=== PATIENT | female | born 1990 | race Caucasian/White ===

== ENCOUNTER 2016-03-19 16:04 | Inpatient (IN) | payer BC ==
[~2016-03-19] VITALS: Ht 167.6 cm; Wt 101.4 kg
[2016-03-19] VITALS (26 sets, daily range): BP systolic 90–144; BP diastolic 50–82; PULSE 84–115; TEMP 98.1–98.5
[2016-03-19] MEDS ORDERED: PRENATAL1 TA7 PO (16:27)
[2016-03-19 18:50] LABS: BASO % 0.1 % (0.0-2.0); EOS # 0.1 (0.0-0.7); EOS % 0.4 % (0-4.0); GRAN # 11.2 (1.4-6.5); GRAN % 74.3 % (42.2-75.2); HEMATOCRIT 33.8 % (37.0-47.0); HEMOGLOBIN 11.2 g/dl (12.5-16.0); LYMPH # 2.3 (1.2-3.4); LYMPH % 15.2 % (20.0-51.0); MEAN CELL VOLUME 84 fl (80.0-100.0); MEAN CORPUSCULAR HEMOGLOBIN 28 pg (27.0-31.0); MEAN CORPUSCULAR HGB CONC 33 g/dl (33.0-37.0); MEAN PLATELET VOLUME 9.7 fl (7.4-10.4); MONO # 1.4 (0.1-0.6); MONO % 9.2 % (1.7-9.3); PLATELET COUNT 299 K/mm3 (130-400); RED BLOOD COUNT 4.01 M/mm3 (4.10-5.30); REDCELL DISTRIBUTION WIDTH-CV 14.1 % (11.5-14.5)
[2016-03-20] VITALS (33 sets, daily range): BP systolic 93–134; BP diastolic 39–90; PULSE 88–148; TEMP 97.4–100.8
[2016-03-21 01:30] VITALS: BP 108/57; PULSE 89; TEMP 97.8
[2016-03-21] MEDS ORDERED: PERCOCET 325 MG1 TA2 PO (07:44)
[2016-03-21] MEDS ORDERED: MOTRIN 600600 MG/TAB PO (07:44)
[2016-03-21 09:41] VITALS: BP 117/78; PULSE 109; TEMP 98
[2016-03-21 15:06] VITALS: BP 115/58; PULSE 102; TEMP 98
[2016-03-21 19:20] VITALS: BP 107/64; PULSE 101; TEMP 97.9
[2016-03-22 08:49] VITALS: BP 110/78; PULSE 113; TEMP 97.1
== END 2016-03-22 13:31 | disposition home or self-care (01) | DRG 765 ==
LOC: LDRO 16:04 → LDR 18:15 → OB 03-20 05:45
PROVIDERS: Obstetrics & Gynecology
PROC: 10D00Z1 Extraction of Products of Conception, Low, Open Approach (ICD-10-PCS; principal; 2016-03-20)
DX: O62.0 Primary inadequate contractions (principal); O75.2 Pyrexia during labor, not elsewhere classified; O69.81X0 Labor and delivery complicated by cord around neck, without compression, not applicable or unspecified; Z3A.39 39 weeks gestation of pregnancy; Z37.0 Single live birth
CPT/HCPCS: J0290; J0690; J1580; J1885; J2270; J2370; J2400; J2405; J2550; J2590; J7120

== ENCOUNTER 2020-07-31 05:38 | Inpatient (IN) | payer BC ==
[2020-07-31] VITALS (17 sets, daily range): BP systolic 97–132; BP diastolic 52–75; PULSE 82–112; TEMP 98.1–98.3
[~2020-07-31] VITALS: Ht 167.6 cm; Wt 97.7 kg
[~2020-07-31 05:38] MED LIST: MOTRIN 600600 MG/TAB PO; PERCOCET 325 MG1 TA2 PO; PRENATAL1 TA7 PO
[2020-07-31 07:16] LABS: BASO % 0.1 % (0.0-2.0); EOS # 0.1 (0.0-0.7); EOS % 0.5 % (0-4.0); GRAN # 6.9 (1.4-6.5); GRAN % 70.2 % (42.2-75.2); HEMOGLOBIN 10.4 g/dl (12.5-16.0); LYMPH % 20.1 % (20.0-51.0); MEAN CELL VOLUME 86 fl (80.0-100.0); MEAN CORPUSCULAR HEMOGLOBIN 27 pg (27.0-31.0); MEAN CORPUSCULAR HGB CONC 31 g/dl (33.0-37.0); MONO # 0.8 (0.1-0.6); MONO % 8.4 % (1.7-9.3); PLATELET COUNT 197 K/mm3 (130-400); RED BLOOD COUNT 3.87 M/mm3 (4.10-5.30); REDCELL DISTRIBUTION WIDTH-CV 14.1 % (11.5-14.5)
[2020-07-31 07:18] LABS: HEMATOCRIT 33.4 % (37.0-47.0)
[2020-08-01 01:30] VITALS: BP 109/56; PULSE 91; TEMP 97.6
[2020-08-01 08:00] VITALS: BP 123/75; PULSE 71; TEMP 98.7
[2020-08-01] MEDS ORDERED: IBU600 MG PO (08:36)
[2020-08-01] MEDS ORDERED: PERCOCET 325 MG1 TA2 PO (08:36)
--- NOTE | 2020-08-01 09:26 | NUR ---
Initial visit; Physician with patient, Store Keeper offered congratulations to Dad for the of their son and requested that he mention to patient Store Keeper was available and offered congratulations.
[2020-08-01 16:30] VITALS: BP 114/69; PULSE 104; TEMP 98.3
[2020-08-01 21:40] VITALS: BP 100/60; PULSE 92; TEMP 98.1
[2020-08-02 08:00] VITALS: BP 106/66; PULSE 91; TEMP 98.4
== END 2020-08-02 12:30 | disposition home or self-care (01) | DRG 788 ==
LOC: OB 05:38
PROVIDERS: ADMIT Obstetrics & Gynecology
PROC: 10D00Z1 Extraction of Products of Conception, Low, Open Approach (ICD-10-PCS; principal; 2020-07-31)
DX: O34.211 Maternal care for low transverse scar from previous cesarean delivery (principal); Z3A.39 39 weeks gestation of pregnancy; Z37.0 Single live birth
CPT/HCPCS: J0690; J1885; J2370; J2405; J2590; J7120

== ENCOUNTER → 2021-11-22 | Outpatient (CLI) | payer BC ==
[~2021-11-22] MED LIST changes: +IBU600 MG PO
== END ==
LOC: COL.RAD 11:23
DX: O43.899 Other placental disorders, unspecified trimester (principal); Z3A.00 Weeks of gestation of pregnancy not specified
CPT/HCPCS: Q9967